=== PATIENT | female | born 1945 | race Caucasian/White ===

== ENCOUNTER 2017-02-16 12:39 | Day surgery (SDC) | payer MEDICARE, BC ==
[2017-02-16 13:15] VITALS: O2SAT 98
[2017-02-16] MEDS ORDERED: TRIAMCINOLONE ACETONIDE 40 MG/ML SUS ONE (13:32)
[2017-02-16] MEDS ORDERED: BUPIVACAINE HCL 0.25% MPF 10 ML SOL INFIL ONE (13:32)
[2017-02-16 14:00] VITALS: BP 150/80; PULSE 59; RESP 20; TEMP 97.2
== END 2017-02-16 14:15 | disposition home or self-care (01) | DRG 554 ==
LOC: SURG 12:39
PROVIDERS: ATTEND Nurse Anesthetist, Certified Registered
DX: M12.9 Arthropathy, unspecified (principal)
CPT/HCPCS: J3300

== ENCOUNTER 2017-06-16 13:54 | Day surgery (SDC) | payer MEDICARE, BC ==
[2017-06-16] MEDS ORDERED: TRIAMCINOLONE ACETONIDE 40 MG/ML SUS ONE (14:28)
[2017-06-16] MEDS ORDERED: BUPIVACAINE HCL 0.25% MPF 10 ML SOL INFIL ONE (14:28)
[2017-06-16 14:37] VITALS: RESP 20; TEMP 98.2
[2017-06-16 14:57] VITALS: BP 146/84; PULSE 60; O2SAT 100
== END 2017-06-16 15:10 | disposition home or self-care (01) | DRG 552 ==
LOC: SURG 13:54
PROVIDERS: ATTEND Nurse Anesthetist, Certified Registered
DX: M53.3 Sacrococcygeal disorders, not elsewhere classified (principal)
CPT/HCPCS: J3300

== ENCOUNTER 2017-11-29 09:59 | Day surgery (SDC) | payer MEDICARE, BC ==
[2017-11-29] MEDS ORDERED: BUPIVACAINE HCL 0.25% MPF 30 ML SOL INFIL ONE (11:24)
[2017-11-29] MEDS: TRIAMCINOLONE ACETONIDE 40 MG/ML SUS ONE ×2 (11:46→11:49)
[2017-11-29 11:49] VITALS: O2SAT 99
[2017-11-29 11:59] VITALS: BP 145/78; PULSE 60; RESP 18; TEMP 98.6
== END 2017-11-29 12:18 | disposition home or self-care (01) | DRG 552 ==
LOC: SURG 09:59
PROVIDERS: ATTEND Nurse Anesthetist, Certified Registered
DX: M53.3 Sacrococcygeal disorders, not elsewhere classified (principal)
CPT/HCPCS: 27096; G0260; J3300

== ENCOUNTER 2018-07-12 13:01 | Day surgery (SDC) | payer MEDICARE, OTHER ==
[2018-07-12] MEDS ORDERED: BUPIVACAINE HCL 0.25% MPF 30 ML SOL INFIL ONE (14:18)
[2018-07-12] MEDS ORDERED: TRIAMCINOLONE ACETONIDE 40 MG/ML SUS ONE (14:18)
[2018-07-12 14:42] VITALS: BP 168/81; PULSE 74; RESP 16; TEMP 96.8; O2SAT 95
== END 2018-07-12 15:04 | disposition home or self-care (01) | DRG 554 ==
LOC: SURG 13:01
PROVIDERS: ATTEND Nurse Anesthetist, Certified Registered
DX: M12.9 Arthropathy, unspecified (principal)
CPT/HCPCS: J3300